=== PATIENT | male | born 1960 | race American Indian/Alaskan Native ===

== ENCOUNTER 2018-10-06 10:32 | Day surgery (SDC) | payer MEDICAID ==
[~2018-10-06 10:32] MED LIST: DIPRIVAN 10 MG/ML IV ONE; NACL 0.9% 1000 ML 1,000 ML IV SCH; WATER FOR IRRIG STERILE IR ONE; WATER FOR IRRIG STERILE ONE; XYLOCAINE 2% INFILTRATI ONE
--- NOTE | 2018-10-06 15:01 | Discharge Summary ---
Short Stay Discharge Plan Activity: advance as tolerated Weight Bearing Status: Weight Bear as Tolerated Diet: regular Additional Instructions: Avoid Aspirin NSAIDS D/C Instructions Avoid the following for the time period specified by your physician: -Asprin(Kevin, Bufferin, Excedrin, Goody's or BC Powders) -Ibuprofen (Advil or Motrin) -Naproxen (Aleve or Naprosyn) -Indomethacin, Sulindac, Etodolac, Diclofenac -Meloxicam, Piroxicam, Tenoxicam, Droxicam, Lornoxicam, Isoxicam -Mefenamic acid, Meclofenamic acid, Flufenamic acid, Tolfenamic acid -Celecoxib (Celebrex) Post Sedation D/C Instructions When you return home you may resume your regular diet unless otherwise directed. -Go directly home from the hospital and rest quietly. You may resume normal activities tomorrow. -Do NOT drive, return to work, operate any machinery or make any important personal or business decisions today. -Do NOT drink any alcohol or take nerve or sleeping drugs. They add to the effects of the medicine still present in your body. Follow up with: DOLORES EJFFERSON MD [Primary Care Provider] - 7 Days Forms: Discharge Signature Page
--- NOTE | 2018-10-06 15:01 | Operative Report ---
Operative Report Operative Report: Date of procedure: 10/06/2018 Procedure: Colonoscopy with Polyp ablation and Hot Biopsy Polypectomy . Attending physician: Dillan Oneal M.D. Router Machine Operator: Dillan Oneal M.D. Indication: Patient is a 57-year-old male who presents for screening colonoscopy. Patient has a change in bowel habits and also on his last colonoscopy 12 years ago had colon polyps. This colonoscopy serves to evaluate patient so that treatment may be directed based on the findings. Consent: Informed consent was obtained after advising the patient and family regarding nature of this procedure, its indications, potential benefits as well as possible complications including but not limited to bleeding perforation and adverse reaction to medication, infection as well as other cardiopulmonary complications. An informed written and verbal consent was then obtained after due opportunity was provided for questions and answers. Monitoring: Patient was monitored continuously with pulse oximetry and electrocardiographic recordings as well as blood pressure recordings. Vital signs remained stable throughout this procedure with no untoward events. Preoperative assessment: Patient was assessed immediately prior to this procedure for capacity to tolerate monitored anesthesia care and moderate sedation as well as general anesthesia. Patient's ASA classification is 2, Mallampati class is 2, Hyomental distance is 3. Instrument: Ecowell video colonoscope Medications: Propofol given intravenously in divided doses. For details please refer to anesthesia records. Description of procedure: Patient was placed in the left lateral decubitus position after achieving sedation, a digital rectal examination was performed following which the colonoscope was introduced into the anal verge and advanced to the cecum which was identified by the cecal valve, the appendiceal orifice, as well as by the cecal strap and direct transillumination. The colonoscope was subsequently withdrawn with careful inspection of all mucosal surfaces. Patient tolerated this procedure well and was subsequently taken to the recovery room. The following findings were noted. Findings: Patient had a diminutive 6-8 mm polyp in the descending colon which was removed by hot biopsy polypectomy. Patient also had a diminutive polyp in the rectum which was ablated. Patient had a few diminutive scattered diverticula in the sigmoid colon. Patient had some retained stool which was easily irrigated. On a retroflexed view of the anal verge, patient had internal hemorrhoids. Impression: Descending colon polyp status post biopsy polypectomy. Rectal polyp status post ablation Retained stool Mild diverticulosis Internal hemorrhoids. Plan: Follow pathology report. High-fiber diet. Repeat colonoscopy in 5 years.
[2018-10-06 15:20] VITALS: BP 135/86
--- NOTE | 2018-10-06 15:41 | Anesthesia Day of Surgery ---
Anesthesia Day of Surgery - Day of Surgery Patient Examined: Yes Patient H&P Reviewed: Yes Patient is NPO: Yes Beta Blockers: No Cardiac Clearance: No Pulmonary Clearance: No Mychal's Test: N/A
--- NOTE | 2018-10-06 15:42 | Anesthesia Consultation ---
Anesthesia Consult and Med Hx - Airway Anesthetic Teeth Evaluation: Good ROM Head & Neck: Adequate Mental/Hyoid Distance: Adequate Mallampati Class: Class II Intubation Access Assessment: Good - Pulmonary Exam CTA: Yes - Cardiac Exam Cardiac Exam: RRR - Pre-Operative Health Status ASA Pre-Surgery Classification: ASA2 Proposed Anesthetic Plan: General, TIVA - Cardiovascular System Hx Hypertension: Yes
--- NOTE | 2018-10-06 15:43 | Post Anesthesia Evaluation ---
- Post Anesthesia Evaluation Patient Participated: Yes Airway Patent: Yes Stable Respiratory Function: Yes Nausea/Vomiting: No Temp > 96.8F: Yes Pain Manageable: Yes Adequeate Hydration: Yes Anesthesia Complications: No Block Receding Appropriately: Not Applicable Patient on Ventilator: No
== END 2018-10-06 15:30 | disposition home or self-care (01) ==
LOC: GIO 10:32
PROVIDERS: ATTEND Internal Medicine Gastroenterology
DX: D12.4 Benign neoplasm of descending colon (principal); K64.8 Other hemorrhoids; K57.30 Diverticulosis of large intestine without perforation or abscess without bleeding; I10 Essential (primary) hypertension; Z98.890 Other specified postprocedural states; Z79.899 Other long term (current) drug therapy; Z88.8 Allergy status to other drugs, medicaments and biological substances
CPT/HCPCS: 45384; 45388; 88305; J2704; J7030